=== PATIENT | female | born 1975 | race Caucasian/White ===

== ENCOUNTER 2020-04-07 13:37 | Emergency (ER) | payer OTHER, SELFPAY ==
--- NOTE | 2020-04-07 14:07 | CT_ITS ---
EXAMINATION: CT SOFT TISSUE NECK WITH CONTRAST CLINICAL INFORMATION: Neck mass. Evaluate for malignancy. Airway involvement. COMPARISON: None TECHNIQUE: Following the intravenous administration of 100 mL of Omnipaque 350 intravenous contrast, helical imaging was performed in the axial plane with generation of coronal and sagittal reformatted images. This CT examination was performed using dose optimization techniques as appropriate, variously including the following: *Automated exposure control *Adjustment of mA and/or kV according to patient size (this includes techniques or standardized protocols for targeted exams where dose is matched to indication/reason for exam; i.e. extremities or head) *Use of iterative reconstruction technique DLP: 561 mGy-cm FINDINGS: A BB marker overlies the left submandibular gland. There is minimal prominence of the left semitubular gland with respect to the right, however no associated salivary gland mass salivary gland mass or associated inflammation is identified. Parotid glands are normal. No cervical adenopathy is identified. No contour abnormality or pathologic enhancement is seen within the oral cavity or pharyngeal mucosal space. The laryngeal structures are normal. The parapharyngeal fat is preserved. The carotid sheath vasculature opacify normally. No extra mucosal soft tissue mass or fluid collection is seen. No retropharyngeal fluid collection is seen. The thyroid gland is normal. The superior mediastinum is unremarkable. The lung apices are clear. Mucus retention cyst present within the left maxillary sinus. Remainder of the paranasal sinuses are clear. Mastoid air cells are pneumatized. The temporomandibular joints are normal. No periapical disease is identified. No osseous abnormalities are seen. The imaged portions of the brain parenchyma are unremarkable. CT/CT soft tissue neck w con IMPRESSION: * No evidence of malignancy. * No cervical lymphadenopathy. * Normal thyroid gland. * BB marker overlies the left submandibular gland which shows slight asymmetric prominence with respect to the right, however no salivary gland mass is identified. No inflammatory changes to suggest sialoadenitis. No sialolithiasis. This critical result was discussed with Ta VILLARREAL at 4:30 PM on 04/07/2020 and it was ascertained that the content and urgency of the report was understood at the time of direct communication.
[2020-04-07 14:32] VITALS: BP 97/46; PULSE 63; RESP 16; TEMP 37; O2SAT 99; BMI 21.3
--- NOTE | 2020-04-07 14:46 | ED_ITS ---
HPI - General Adult General Chief complaint: General Medical Stated complaint: sore throat Time Seen by Provider: 04/07/20 14:10 History of Present Illness HPI narrative: Patient complains of some mild neck swelling and intermittent painful lymph nodes in her neck for several months since August, and intermittent sore throat, she has had this sore throat for 2 weeks but has had several other episodes of sore throat over the past months It is painful to swallow but she is able to swallow and she has no difficulty breathing, no fever no chills no weight loss no body aches The symptoms are mild The neck swelling that she perceives has been going on for several months and the sore throat has been coming and going She has been to multiple urgent cares and medical settings which she has received various antibiotics Related Data Previous Rx's Medication Instructions Recorded ibuprofen 600 mg PO Q6H PRN #20 tab 04/07/20 Allergies Allergy/AdvReac Type Severity Reaction Status Date / Time No Known Allergies Allergy Unverified 02/08/20 19:12 [No Known Allergies*] Review of Systems Review of Systems: Review of systems is positive for neck swelling and sore throat There is no difficulty breathing no difficulty swallowing older there is pain on swallowing, no shortness of breath no chest pain no palpitations no rash no abdominal pain no nausea no vomiting no weight loss no fevers no weakness no dizziness Yes all other systems are reviewed and are negative [facility] Past Medical History Attestation statement: The following information was validated with the patient. [facility] Narrative: No relevant medical history, she is a long-time every day smoker Social History Social History Alcohol intake: current Alcohol intake frequency: a few times a month Smoking Status: Current every day smoker Smoked in Last 30 Days: Yes Use of substances other than those prescribed or required for medical reasons: No Advance Directives: No Advance Directives Information Provided: Yes Physical Exam Vital Signs: Vital Signs: Last Vital Signs Temp 98.6 F 04/07/20 14:32 Pulse 63 04/07/20 14:32 Resp 16 04/07/20 14:32 BP 97/46 L 04/07/20 14:32 Pulse Ox 99 04/07/20 15:30 Body Mass Index 21.3 Patient is A&O x3 comfortable no acute distress The eyes are clear The pharynx is clear without redness exudate or swelling, uvula is midline, mucous membranes are moist, voice is normal The neck is supple, there is what seems to be an enlarged thyroid with a nontender soft tissue swelling over the lower mid anterior neck, there is some tender cervical adenopathy and tenderness over left submandibular gland but no redness no warmth the skin is normal The chest is clear to auscultation bilaterally with full equal symmetrical breath sounds The heart no murmurs B abdomen soft nontender Extremities full range of motion x4 skin no rashes Neuro no deficits Course Course Course Narrative: Patient was imaged because of concern for possible thyroid disease or malignancy as she had or central neck mild swelling for several months and she has had intermittent episodes of lymphadenopathy and a long smoking history She is comfortable now remained comfortable throughout ER visit and imaging of her neck with IV contrast was basically normal with no evidence of malignancy Labs were reviewed and patient was discharged Medical Decision Making Lab Data Lab results reviewed: Yes I reviewed the patient's lab results. Result diagrams: 04/07/20 14:53 04/07/20 14:53 Labs: Lab Results 04/07/20 04/07/20 04/07/20 Range/Units 14:53 14:53 14:53 WBC 8.6 (4.8-10.8) X10*3/uL RBC 3.71 L (4.20-5.50) X10*6/uL Hgb 11.1 L (12.0-16.0) g/dl Hct 33.8 L (37-47) % MCV 91.1 (80-98) fL MCH 29.9 (27.0-33.0) pg MCHC 32.8 (31.0-35.0) g/dl RDW 14.0 (11.0-16.0) % Plt Count 283 (160-400) X10*3/uL MPV 9.7 (9.4-12.3) fL Immature Gran % (Auto) Cancelled Neut % (Auto) Cancelled Lymph % (Auto) Cancelled [place] % (Auto) Cancelled Eos % (Auto) Cancelled Baso % (Auto) Cancelled Lymph # (Auto) Cancelled [place] # (Auto) Cancelled Eos # (Auto) Cancelled Baso # (Auto) Cancelled Abs Immat Gran (auto) Cancelled Absolute Neuts (auto) Cancelled Absolute Nucleated RBC 0.000 (0.0-0.012) X10*3/uL Nucleated RBC % (auto) 0.0 (0.0-0.2) /100WBC Neutrophils % (Manual) 51 (45-73) % Band Neutrophils % 1 L (3-5) % Lymphocytes % (Manual) 35 (20-40) % Atypical Lymphs % (Man) 4 (0-6) % Monocytes % (Manual) 5 (2-11) % Eosinophils % (Manual) 1 (0-4) % Basophils % (Manual) 3 H (0-1) % Abs Neuts (Manual) 4.5 (2.2-7.9) X10*3/uL Lymphocytes # (Manual) 3.0 (0.6-4.8) X10*3/uL Atyp Lymphs # (Manual) 0.3 x10*3/uL Monocytes # (Manual) 0.4 (0.0-1.2) X10*3/uL Eosinophils # (Manual) 0.1 (0.0-0.8) X10*3/UL Basophils # (Manual) 0.3 (0.0-0.3) X10*3/uL Platelet Estimate NORMAL (NORMAL) Plt Morphology Comment NORMAL RBC Morphology NORMAL Sodium 137 (135-145) mmol/L Potassium 4.3 (3.3-5.1) mmol/l Chloride 104 (96-108) mmol/L Carbon Dioxide 23 (22-29) mmol/L Anion Gap 14 (12-20) BUN 9 (9-16) mg/dL Creatinine 0.73 (0.5-1.4) mg/dL Estim Creat Clear Calc 79.6 Estimated GFR > 60 Random Glucose 81 (60-115) mg/dL Calcium 8.9 (8.4-10.2) mg/dL TSH 0.67 (0.32-4.0) mIU/mL Imaging Data Neck CT with contrast: Attestation: I personally reviewed and interpreted this imaging study as follows: Radiologist's impression: CT/CT soft tissue neck w con IMPRESSION: * No evidence of malignancy. * No cervical lymphadenopathy. * Normal thyroid gland. * BB marker overlies the left submandibular gland which shows slight asymmetric prominence with respect to the right, however no salivary gland mass is identified. No inflammatory changes to suggest sialoadenitis. No sialolithiasis. This critical result was discussed with Ta VILLARREAL at 4:30 PM on 04/07/2020 and it was ascertained that the content and urgency of the report was understood at the time Discharge Plan Discharge Clinical Impression: Pharyngitis Qualifiers: Pharyngitis/tonsillitis etiology: unspecified etiology Qualified Code(s): J02.9 - Acute pharyngitis, unspecified Patient Disposition: Home, Self-Care Additional Instructions: There were no serious findings on the CT scan and labs including thyroid were normal No sign of any dangerous condition Follow with primary care doctor if ongoing frequent sore throats continue for further evaluation and possible ENT referral Try to quit smoking We gave 1 dose of prednisone which often reduces inflammation in the throat and tucked you can get Tylenol or Motrin [id number] as needed Prescriptions: New ibuprofen 600 mg tablet 600 mg PO Q6H PRN (Reason: pain) Qty: 20 RF: 0 Interventions: ED Discharge Assessment Last Done: 04/07/20 17:01 Discharge Date/Time: 04/07/20 17:01
[2020-04-07 15:08] LABS: Hematocrit 33.8 % (37-47); Hemoglobin 11.1 g/dl (12.0-16.0); Mean Corpuscular HGB Conc 32.8 g/dl (31.0-35.0); Mean Corpuscular Hemoglobin 29.9 pg (27.0-33.0); Mean Corpuscular Volume 91.1 fL (80-98); Mean Platelet Volume 9.7 fL (9.4-12.3); Platelet Count 283 X10*3/uL (160-400); Red Blood Count 3.71 X10*6/uL (4.20-5.50)
[2020-04-07 15:09] LABS: WBC ABN SCTR FOR CBC 1; White Blood Count 8.6 X10*3/uL (4.8-10.8)
[2020-04-07 15:30] VITALS: O2SAT 99
[2020-04-07 15:30] LABS: Atypical Lymph Absolute Manual 0.3 x10*3/uL; Atypical Lymphs Percent Manual 4 % (0-6); Band Neutrophils Percent 1 % (3-5); Basophils Abs Manual 0.3 X10*3/uL (0.0-0.3); Basophils Percent Manual 3 % (0-1); Eosinophils Absolute Manual 0.1 X10*3/UL (0.0-0.8); Eosinophils Percent Manual 1 % (0-4); Lymphocytes Percent Manual 35 % (20-40); Monocytes Absolute Manual 0.4 X10*3/uL (0.0-1.2); Monocytes Percent Manual 5 % (2-11); Neutrophils Absolute Manual 4.5 X10*3/uL (2.2-7.9); Neutrophils Percent Manual 51 % (45-73)
[2020-04-07 15:32] LABS: RBC Morphology NORMAL
[2020-04-07 15:33] LABS: Anion Gap 14 (12-20); Blood Urea Nitrogen 9 mg/dL (9-16); Calcium 8.9 mg/dL (8.4-10.2); Carbon Dioxide 23 mmol/L (22-29); Chloride 104 mmol/L (96-108); Creatinine Clr Calc Pharmacy 79.6; Estimated Glomerular Filt Rate > 60; Glucose Random 81 mg/dL (60-115); Platelet Estimate NORMAL (NORMAL); Platelet Morphology Comment NORMAL; Potassium 4.3 mmol/l (3.3-5.1); Sodium 137 mmol/L (135-145)
[2020-04-07 15:43] LABS: TSH reflex Free T4 0.67 mIU/mL (0.32-4.0)
[2020-04-07] MEDS: iohexoL 350 MG/ML 100 ML INFUS..BTL IV (16:03)
[2020-04-07] MEDS: predniSONE 20 MG TABLET 60 MG PO (17:04)
== END 2020-04-07 17:01 | disposition home or self-care (01) ==
PROVIDERS: Physician Assistant Medical; Emergency Provider Emergency Medicine
DX: J02.9 Acute pharyngitis, unspecified (principal); M54.2 Cervicalgia; F17.200 Nicotine dependence, unspecified, uncomplicated; Z71.6 Tobacco abuse counseling; Z20.828 Contact with and (suspected) exposure to other viral communicable diseases
CPT/HCPCS: 36415; 70491; 80048; 84443; 85007; 85025; 85027; 87071; 87147; 87880; 99284; Q9967; U0003

== ENCOUNTER 2020-08-26 10:14 | Outpatient (REF) | payer OTHER, SELFPAY ==
[2020-08-26 13:37] LABS: SARS COV2 PCR INHOUSE NEGATIVE (Negative)
== END 2020-08-26 10:15 | disposition home or self-care (01) ==
LOC: HO.LAB 10:14
PROVIDERS: Visit Provider Internal Medicine
DX: Z20.822 Contact with and (suspected) exposure to COVID-19 (principal)
CPT/HCPCS: C9803; U0003